=== PATIENT | female | born 1995 | race Caucasian/White ===

== ENCOUNTER 2018-05-03 22:07 | Emergency (ER) | payer SELFPAY ==
[~2018-05-03] VITALS: Ht 172.7 cm; Wt 96.6 kg
[2018-05-03 22:35] VITALS: Ht 172.7 cm; Wt 96.6 kg
[2018-05-04 02:29] VITALS: BP 118/75
== END 2018-05-04 02:29 | disposition home or self-care (01) ==
LOC: ED 22:07
DX: L50.0 Allergic urticaria (principal)
CPT/HCPCS: J1100; J1200